=== PATIENT | male | born 1950 | race Caucasian/White ===

== ENCOUNTER 2017-10-08 09:42 | Outpatient (RCR) ==
[2016-01-28 11:04] VITALS: BMI 38.0
[2017-10-08 09:51] VITALS: TEMP 97.8
[2017-10-10 10:31] VITALS: BP 136/62
== END 2017-10-16 ==
LOC: CAR.REHAB 09:42
PROVIDERS: ATTEND Internal Medicine
DX: I25.810 Atherosclerosis of coronary artery bypass graft(s) without angina pectoris (principal)
CPT/HCPCS: 93797

== ENCOUNTER 2017-10-17 07:44 | Outpatient (RCR) ==
[2016-01-28 11:04] VITALS: BMI 38.0
[2017-11-12 10:59] VITALS: BP 140/56
== END 2017-11-13 ==
LOC: CAR.REHAB 07:44
PROVIDERS: ATTEND Internal Medicine
DX: I25.810 Atherosclerosis of coronary artery bypass graft(s) without angina pectoris (principal)
CPT/HCPCS: 93797

== ENCOUNTER 2017-11-14 06:44 | Outpatient (RCR) ==
[2016-01-28 11:04] VITALS: BMI 38.0
[2017-12-12 10:54] VITALS: BP 138/58
== END 2017-12-14 ==
LOC: CAR.REHAB 06:44
PROVIDERS: ATTEND Internal Medicine
DX: I25.810 Atherosclerosis of coronary artery bypass graft(s) without angina pectoris (principal)
CPT/HCPCS: 93797

== ENCOUNTER 2017-12-16 09:02 | Outpatient (RCR) ==
[2016-01-28 11:04] VITALS: BMI 38.0
[2017-12-17 10:59] VITALS: BP 148/58
== END 2017-12-20 10:33 | disposition home or self-care (01) ==
LOC: CAR.REHAB 09:02
PROVIDERS: ATTEND Internal Medicine
DX: I25.10 Atherosclerotic heart disease of native coronary artery without angina pectoris (principal)
CPT/HCPCS: 93797

== ENCOUNTER 2018-01-10 10:00 | Outpatient (RCR) ==
[2016-01-28 11:04] VITALS: BMI 38.0
--- NOTE | 2018-01-08 14:56 | RS.OPPTEV2 ---
Date of Note: 01/08/18 Visit #: 1 Date of Evaluation: 01/08/18 Payer Source: MEDICARE Surgery Performed?: Yes (Right TKA) Treatment Diagnosis: Right knee joint limitation, pain, s/p right TKA History of Condition/Mechanism of Injury:: Patient states progressive right knee pain from arthritis led him to have a knee replacement. He had the left TKA in April 2015. Prior Level of Function.....Patient was independent with: ADL's, Self Care, Caregiving, Ambulation/Mobility, Community Integration/Access Functional Limitations: Sleep, Self Care, ADL's, Reaching, Pushing, Pulling, Lifting, Carrying, Sitting, Standing, Bending, Squatting, Ambulation, Community Access/Integration Current Subjective/complaints:: Patient reports he feels that he is doing better after this knee surgery than when he had the left knee done. States he has not had a lot of pain. States he is using the rolling walker with all ambulation. He says he feels like he could take off walking without it, but he does not want to get away from it to soon. He goes back to the doctor on Saturday01/13/18. Reports having one small step up to his home. He is not able to drive at this time due to proximity of surgery. He is taking a modified shower/ bath by using a stool in the tub. States he needs assistance with ADL's due to limited knee ROM. States he has not taken pain medication for the last few days. States he is icing the knee and trying not to overdue his activity. He is performing exercises as instructed in the hospital. Reports prior to surgery he worked out at [employer] three times a week on the bike, treadmill, and elliptical life skills trainer. States he did not have a CPM at all with this knee surgery. Treatment Side (optional): Right Medical History Medical History: Hypertension, CVA/TIA, Diabetes Medical History Comments:: neuropathy from Diabetes Surgical History Comments:: Left TKA 2014 Smoking Status: Never smoker Hx Home Medications: aspirin, atorvastatin,celexa,plavix, lasix,neurontin, norco , keppra, zestril, lopressor Patient's Goals: His goal is to return to his previous level of function. Pain Assessment - Pain Description Pain Location: Right knee Pain Description: Aching Current Pain Intensity: 3/10 Worst Pain Intensity: 8/10 Functional Outcome Measure LE Functional Scale: 21 (21/80=73.75% impairment) - G Codes & Severity Modifier G Codes & Modifier: Mobility current CL. Mobility goal CJ Source of G Code score: LE functional scale Observation - Observation Inspection: Patient presents with light dressing to anterior aspect of the right knee joint. Demonstrates stitches in place and no drainage. Demonstrates moderate bruising throughout the posterior aspect of the right knee and lower leg. Gait - Gait Pattern Gait Comments: Patient ambulates with a rolling walker with decreased stance on the right LE. He demonstrates good heelstrike on the right LE. Right hip and knee flexion is decreased during swing phase. Transfers from chair and treatment table independently. - Left Knee ROM Left Knee Extension: full extension Left Knee Flexion: 125 (degrees AROM) - Right Knee ROM Right Knee Extension: -6 degrees from full extension Right Knee Flexion: 104 (degrees AROM) Knee ROM Limitations: Soft Tissue Tightness, Pain - Left Knee Strength Left Knee Extension: 5 Normal Left Knee Flexion: 5 Normal Comments: Left hip strength 4+ to 5/5. - Right Knee Strength Right Knee Extension: 4 Good Right Knee Flexion: 4 Good Comments: Right hip strength 4+/5 throughout. Palpation Comments:: Patient with expected amount of tenderness and swelling throughout the right knee joint and lower leg. Sensation - Sensation Comments: Reports tingling in bilateral feet from neuropathy. - Heat/Cryotherapy Treatment: Cryotherapy (X 12 mins following evaluation and exercises) Interventions - Exercise/Activities/Manual Therapy Exercises/Activities: Patient assisted with flexion/extension of the right knee. Performed SAQ's, SLR's, ankle pumps, and received stretching to the right heelcord. Patient encouraged to continue performing these exercises at home and also advised to elevate and ice the knee often to help decrease swelling. Manual Therapy: NA HOME EXERCISE PROGRAM: AP's, SLR's, SAQ's, heel slides, standing HS curls. - Charges Timed Code Treatment Minutes: 18 mins Total Treatment Time: 50 mins Procedures billed for this date of service:: EVAL Low, CP, EX EVALUATION COMPLEXITY LEVEL EVALUATION COMPLEXITY LEVEL: HISTORY: Medium (Diabetes, CVA, CABG), EXAM OF BODY SYSTEMS: Low (limited walking, standing,driving, ADL's), CLINICAL PRESENTATION: Low, CLINICAL DECISION MAKING: Low Assessment Assessment: Patient presents to therapy one week s/p right TKA. He demonstrates limited right knee ROM and strength. He scores 73.75% impairment on the LE functional scale. He is unable to independently perform all selfcare, ADL's, and his regular activities. He presents good potential to regain functional AROM and strenght to return to his previous level of function. Patient Education: Education of diagnosis, Body/Joint mechanics, Home Exercise Program, Home Safety, Activity Modification, Education of Plan of Care Rehab Potential: Good Short Term Goals Goal #1: Left knee to actively demonstrate full extension. Goal to be met by: 01/22/18 Goal #2: Left knee flexion to 120 degrees. Goal to be met by: 01/22/18 Goal #3: Left quad strength 4+/5. Goal to be met by: 01/22/18 Goal #4: Patient to ambulate with cane in department with good safety. Goal to be met by: 01/22/18 Halfway Goals Goal #1: Pt knows HEP and to continue ex's to maintain functional level at D/C. Goal to be met by: 02/22/18 Goal #2: Score on LE functional scale improved to 39% or less impairment. Goal to be met by: 02/22/18 Goal #3: Pt to amb. without assistive device, community distances with min. gt dev. Goal to be met by: 02/22/18 Goal #4: Left knee AROM WFL's to perform all functional activities/ADL's. Goal to be met by: 02/22/18 Plan - Treatment to be Provided Procedures: Therapeutic Exercises, Therapeutic Activity, Gait Training, Neuromuscular Rehab, Manual Therapy, Patient Education Modalities: Electrical Stimulation, Cryotherapy - Treatment Plan Frequency: 3 X week Duration: 6 weeks ORDER # VISITS AND/OR THROUGH DATE: 02/22/18 - Treatment Code (1) Knee pain Code(s): M25.569 - PAIN IN UNSPECIFIED KNEE Qualifiers: Chronicity: acute Laterality: right Qualified Code(s): M25.561 - Pain in right knee (2) Knee stiffness Qualifiers: Laterality: right Qualified Code(s): M25.661 - Stiffness of right knee, not elsewhere classified (3) Aftercare following joint replacement surgery Code(s): Z47.1 - AFTERCARE FOLLOWING JOINT REPLACEMENT SURGERY Qualifiers: Joint replacement surgery site: knee Laterality: right Qualified Code(s) : Z47.1 - Aftercare following joint replacement surgery; Z96.651 - Presence of right artificial knee joint
--- NOTE | 2018-01-10 12:04 | RS.OPPTDN ---
Subjective Date of Note: 01/10/18 Visit #: 2 Date of Evaluation: 01/08/18 Payer Source: MEDICARE Treatment Diagnosis: Right knee joint limitation, pain, s/p right TKA Current Subjective/complaints:: Patient states he "overdid it" yesterday. He reports going out to lunch with his family and had his leg in bent position for too long resulting in increased swelling and pain. Reports he has been performing HEP, but did forget to ice. Reports he does not take pain medication often, but did prior to coming this morning and did also last night. - Treatment Modality: Electrical Stim Unattended Parameters/Method Applied: hivolt 4 large pads cross current @ 300-345 pk volts x 18 mins after therex Patient Position: Supine - Heat/Cryotherapy Treatment: Cryotherapy (anterior/post R knee) Interventions - Exercise/Activities/Manual Therapy Exercises/Activities: Patient assisted with flexion/extension of the right knee , heel cord stretches. Performed SAQ's, SLR's, pillow squeezes, ankle pumps, hip abd/add, QS multiple reps. Patient receives education of diagnosis, HEP, and edema control. Patient sits to perform LAQ also. Total minutes of Exercise: 25 Manual Therapy: NA HOME EXERCISE PROGRAM: AP's, SLR's, SAQ's, heel slides, standing HS curls. - Charges Timed Code Treatment Minutes: 25 Total Treatment Time: 43 Procedures billed for this date of service:: cp, estim (un), ex Assessment: Patient experiencing increased swelling and pain since he had prolonged sitting yesterday with company. He is able to glo all therex today, performing active SLR and demo reduced swelling with ex's and modalities. Patient Education: Education of diagnosis, Body/Joint mechanics, Home Exercise Program, Education of Plan of Care Patient demonstrates compliance with HEP?: Yes Short Term Goals Goal #1: Left knee to actively demonstrate full extension. Goal to be met by: 01/22/18 Progress towards Goal:: Progressing Goal #2: Left knee flexion to 120 degrees. Goal to be met by: 01/22/18 Progress towards Goal:: Progressing Goal #3: Left quad strength 4+/5. Goal to be met by: 01/22/18 Goal #4: Patient to ambulate with cane in department with good safety. Goal to be met by: 01/22/18 Vending Machine Attendant Goals Goal #1: Pt knows HEP and to continue ex's to maintain functional level at D/C. Goal to be met by: 02/22/18 Goal #2: Score on LE functional scale improved to 39% or less impairment. Goal to be met by: 02/22/18 Goal #3: Pt to amb. without assistive device, community distances with min. gt dev. Goal to be met by: 02/22/18 Goal #4: Left knee AROM WFL's to perform all functional activities/ADL's. Goal to be met by: 02/22/18 Plan PLAN OF CARE EXPIRES ON:: 02/22/18 ORDER # VISITS AND/OR THROUGH DATE: 02/22/18 PLAN: Patient to continue TIW advancing exercises as glo. Patient to follow up January 13.
--- NOTE | 2018-01-14 10:49 | RS.OPPTDN ---
Subjective Date of Note: 01/14/18 Visit #: 3 Date of Evaluation: 01/08/18 Payer Source: MEDICARE Treatment Diagnosis: Right knee joint limitation, pain, s/p right TKA Current Subjective/complaints:: Patient reports tightness ,more than actual knee pain .He is compliant to HEP.He is now ambulating with straight cane .He had follow up appt. with Dr. Hamm yesterday,with good report. Pain Assessment - Pain Description Pain Location: R knee Pain Description: Dull Current Pain Intensity: 2-3 - Treatment Modality: Electrical Stim Unattended Parameters/Method Applied: 20 mins. high volt to R knee,channel 1 to quads @ 320 pv,channel 2 to anterior tib. @ 400 pv. Patient Position: Supine - Heat/Cryotherapy Treatment: Cryotherapy (concurrent with e-stim) Interventions - Exercise/Activities/Manual Therapy Exercises/Activities: 30 mins. total of TKA protocol in supine ,multiple reps of each.Pasive knee extension on bolster x 20 secs./5 reps.Gentle R hamstring stretches .Knee extension -10 at rest ,-7 with quad set.Knee flexion to 112 today without assist. Total minutes of Exercise: 30 Manual Therapy: NA Total minutes of Manual Therapy: 0 HOME EXERCISE PROGRAM: AP's, SLR's, SAQ's, heel slides, standing HS curls. - Charges Timed Code Treatment Minutes: 50 Total Treatment Time: 50 Procedures billed for this date of service:: cp,ex 2,e-stim Assessment: Progressing well.He is now 2 weeks post-op,has softer end feel present for knee flexion ,moderate edema and warmth present.He has good knowledge of HEP ,as he has had the L knee replaced in 2014.He also has good understanding of safety and joint protection. Patient Education: Education of diagnosis, Body/Joint mechanics, Home Exercise Program, Home Safety, Activity Modification, Education of Plan of Care Patient demonstrates compliance with HEP?: Yes Short Term Goals Goal #1: Right knee to actively demonstrate full extension. Goal to be met by: 01/22/18 Progress towards Goal:: Progressing Goal #2: Right knee flexion to 120 degrees. Goal to be met by: 01/22/18 Progress towards Goal:: Progressing Goal #3: Right quad strength 4+/5. Goal to be met by: 01/22/18 Progress towards Goal:: Progressing Goal #4: Patient to ambulate with cane in department with good safety. Goal to be met by: 01/22/18 Progress towards Goal:: Progressing Custodial Goals Goal #1: Pt knows HEP and to continue ex's to maintain functional level at D/C. Goal to be met by: 02/22/18 Progress towards goal: Progressing Goal #2: Score on LE functional scale improved to 39% or less impairment. Goal to be met by: 02/22/18 Goal #3: Pt to amb. without assistive device, community distances with min. gt dev. Goal to be met by: 02/22/18 Goal #4: Right knee AROM WFL's to perform all functional activities/ADL's. Goal to be met by: 02/22/18 Plan PLAN OF CARE EXPIRES ON:: 02/22/18 ORDER # VISITS AND/OR THROUGH DATE: 02/22/18 PLAN: Continue PT to eliminate edema and improve strength in the R knee.
== END 2018-01-13 23:59 ==
PROVIDERS: ATTEND Orthopaedic Surgery
DX: Z47.1 Aftercare following joint replacement surgery (principal); M17.11 Unilateral primary osteoarthritis, right knee; M25.561 Pain in right knee; M25.661 Stiffness of right knee, not elsewhere classified

== ENCOUNTER 2018-02-12 10:00 | Outpatient (RCR) ==
[2016-01-28 11:04] VITALS: BMI 38.0
--- NOTE | 2018-01-16 11:45 | RS.OPPTDN ---
Subjective Date of Note: 01/16/18 Visit #: 4 Date of Evaluation: 01/08/18 Payer Source: MEDICARE Treatment Diagnosis: Right knee joint limitation, pain, s/p right TKA Current Subjective/complaints:: Patient says he has increased swelling from sitting with a friend yesterday which also impacted his sleep. Reports he does try to get up many times throughout the day to walk around and can tell he is gaining strength and motion. Reports he rarely takes pain medication either. He adds, he is able to now walk in his home without any AD, but does use SC in the community. Reports he is also able to tell that he is able to walk faster, returning to his normal pace. Pain Assessment - Pain Description Pain Location: "sore and swollen". Tender at the posterior knee and into the upper calf - Treatment Modality: Electrical Stim Unattended Parameters/Method Applied: hivolt 4 large pads cross current @ 425 pk volts x 20 mins over the R knee Patient Position: Supine - Heat/Cryotherapy Treatment: Cryotherapy Interventions - Exercise/Activities/Manual Therapy Exercises/Activities: Mr. Barahona receives patellar glides for the R knee, assisted with flexion/extension of the right knee, heel cord stretches. Performed SAQ's, SLR's, ball squeezes, ankle pumps,hip abd/add, QS multiple reps. Further hamstring stretching and calf as well as heel slides. LAQ x 15. Continued with education of diagnosis, HEP, and edema control. Patient sits to perform LAQ also. Total minutes of Exercise: 33 Manual Therapy: NA HOME EXERCISE PROGRAM: AP's, SLR's, SAQ's, heel slides, standing HS curls. - Charges Timed Code Treatment Minutes: 33 Total Treatment Time: 53 Procedures billed for this date of service:: cp, estim (un), ex2 Assessment: Patient progressing quite well with ROM and pain level. He continues to demo moderate bruising and swelling with pitting edema to the R knee and lower leg. He is very compliant with HEP and is now progressed to using SC for community and independent amb at home. Patient Education: Home Exercise Program, Home Safety, Activity Modification, Education of Plan of Care Patient demonstrates compliance with HEP?: Yes Short Term Goals Goal #1: Left knee to actively demonstrate full extension. Goal to be met by: 01/22/18 Progress towards Goal:: Progressing Goal #2: Left knee flexion to 120 degrees. Goal to be met by: 01/22/18 Progress towards Goal:: Progressing Goal #3: Left quad strength 4+/5. Goal to be met by: 01/22/18 Progress towards Goal:: Progressing Goal #4: Patient to ambulate with cane in department with good safety. Goal to be met by: 01/22/18 Progress towards Goal:: Met Vending Machine Refiller Goals Goal #1: Pt knows HEP and to continue ex's to maintain functional level at D/C. Goal to be met by: 02/22/18 Goal #2: Score on LE functional scale improved to 39% or less impairment. Goal to be met by: 02/22/18 Goal #3: Pt to amb. without assistive device, community distances with min. gt dev. Goal to be met by: 02/22/18 Goal #4: Left knee AROM WFL's to perform all functional activities/ADL's. Goal to be met by: 02/22/18 Plan PLAN OF CARE EXPIRES ON:: 02/22/18 ORDER # VISITS AND/OR THROUGH DATE: 02/22/18 PLAN: Patient to continue progressing therex to the R knee. Complete measurements tomorrow.
--- NOTE | 2018-01-17 11:43 | RS.OPPTDN ---
Subjective Date of Note: 01/17/18 Visit #: 5 Date of Evaluation: 01/08/18 Payer Source: MEDICARE Treatment Diagnosis: Right knee joint limitation, pain, s/p right TKA Current Subjective/complaints:: Patient says his knee is improving with motion and tightness is slightly less today. He says he has been performing HEP and using ice often at home. - Treatment Modality: Electrical Stim Unattended Parameters/Method Applied: 4 large pads crossed @ 435-450 pk volts x 20 mins to R knee after therex Patient Position: Supine - Heat/Cryotherapy Treatment: Cryotherapy (posterior/anterior knee) Interventions - Exercise/Activities/Manual Therapy Exercises/Activities: Mr. Barahona receives patellar glides for the R knee, assisted with flexion/extension of the right knee, heel cord and hamstring stretches. Performed SAQ's applying 2#, SLR's, ball squeezes, ankle pumps,DF with green tband, hip abd/add, QS multiple reps. Further hamstring stretching and calf as well as heel slides. LAQ x 15. Standing at railing: hip abd, ham curls, heel raises, hip flexion (L) x 12 reps. Total minutes of Exercise: 38 Manual Therapy: NA HOME EXERCISE PROGRAM: AP's, SLR's, SAQ's, heel slides, standing HS curls. - Objective Findings Observations,measurements,etc.: Active knee flexion: 116 degrees supine. Active knee extension: -4 degrees in supine - Charges Timed Code Treatment Minutes: 38 Total Treatment Time: 58 Procedures billed for this date of service:: cp, estim (un), ex3 Assessment: Patient demo increased knee flexion compared to last week. He demo good patellar motion and decreased palpable tightness to the posterior knee and at the hamstring tendons. He presents amb independently today with only slight decrease in WBing to the R LE. Improved mobility and swelling today. Patient Education: Body/Joint mechanics, Home Exercise Program, Education of Plan of Care Patient demonstrates compliance with HEP?: Yes Short Term Goals Goal #1: Left knee to actively demonstrate full extension. Goal to be met by: 01/22/18 Progress towards Goal:: Progressing Goal #2: Left knee flexion to 120 degrees. Goal to be met by: 01/22/18 Progress towards Goal:: Progressing Comments:: 116 today Goal #3: Left quad strength 4+/5. Goal to be met by: 01/22/18 Progress towards Goal:: Progressing Goal #4: Patient to ambulate with cane in department with good safety. Goal to be met by: 01/22/18 Progress towards Goal:: Met Comments:: presents today with no AD [facility] Goals Goal #1: Pt knows HEP and to continue ex's to maintain functional level at D/C. Goal to be met by: 02/22/18 Goal #2: Score on LE functional scale improved to 39% or less impairment. Goal to be met by: 02/22/18 Goal #3: Pt to amb. without assistive device, community distances with min. gt dev. Goal to be met by: 02/22/18 Goal #4: Left knee AROM WFL's to perform all functional activities/ADL's. Goal to be met by: 02/22/18 Plan PLAN OF CARE EXPIRES ON:: 02/22/18 ORDER # VISITS AND/OR THROUGH DATE: 02/22/18 PLAN: Patient to continue TIW for progressive therex for mobility and strength.
--- NOTE | 2018-01-22 14:03 | RS.OPPTDN ---
Subjective Date of Note: 01/22/18 Visit #: 7 Date of Evaluation: 01/08/18 Payer Source: MEDICARE Treatment Diagnosis: Right knee joint limitation, pain, s/p right TKA Current Subjective/complaints:: Patient says he is walking around without an AD without difficulty in home/community, but still battling swelling and tightness. He says sitting for short periods of time continues to cause swelling. He is [place]. He reports pain is very mild at this point, not taking any pain meds prior to appt today. Pain Assessment - Pain Description Pain Location: tightness to the posterior R knee and calf - Treatment Modality: Electrical Stim Unattended Parameters/Method Applied: hivolt 4 large pads crossed over the R knee after therex @ 445-470pk volts x 20 mins Patient Position: Supine - Heat/Cryotherapy Treatment: Cryotherapy (anterior/posterior knee) Interventions - Exercise/Activities/Manual Therapy Exercises/Activities: 32 mins. Patient began on stationary bike full revolutions for/retro x 7 mins adjusting and repositioning his R foot often in pedal. He receives patellar mobs, stretching for HS, knee flexion/ext, and heel cords. SAQ 2#, green tband for DF, hip abd in hooklying, SLR, hip abd with SLR, ball squeeze for hip add, 2x10. Stretching for knee extension over bolster. Continued stretching for extension with drainage massage, heel slides with overpressures for flexion. LAQ 2#, x 20. Standing: hip abd, ham curls, heel raises, hip flexion x 10. Ended with modalties. Manual Therapy: NA HOME EXERCISE PROGRAM: AP's, SLR's, SAQ's, heel slides, standing HS curls. - Charges Timed Code Treatment Minutes: 32 Total Treatment Time: 52 Procedures billed for this date of service:: ex2, estim (un), cp, Assessment: Patient demo improved swelling to the R LE/calf now without pitting edema. Decreased tightness to the posterior knee and calf and pain remaining low enough to not warrant him to take pain medication routinely. He is amb with more equal WB on the R LE and independently in the community now. Patient Education: Body/Joint mechanics, Home Exercise Program, Education of Plan of Care Patient demonstrates compliance with HEP?: Yes Short Term Goals Goal #1: Left knee to actively demonstrate full extension. Goal to be met by: 01/22/18 Progress towards Goal:: Progressing Goal #2: Left knee flexion to 120 degrees. Goal to be met by: 01/22/18 Progress towards Goal:: Progressing Goal #3: Left quad strength 4+/5. Goal to be met by: 01/22/18 Progress towards Goal:: Progressing Goal #4: Patient to ambulate with cane in department with good safety. Goal to be met by: 01/22/18 Progress towards Goal:: Met Comments:: Now amb independently Perforator Operator Goals Goal #1: Pt knows HEP and to continue ex's to maintain functional level at D/C. Goal to be met by: 02/22/18 Progress towards goal: Progressing Goal #2: Score on LE functional scale improved to 39% or less impairment. Goal to be met by: 02/22/18 Comments: reassess next week Goal #3: Pt to amb. without assistive device, community distances with min. gt dev. Goal to be met by: 02/22/18 Progress towards goal: Partially Met Goal #4: Left knee AROM WFL's to perform all functional activities/ADL's. Goal to be met by: 02/22/18 Progress towards goal: Progressing Plan PLAN OF CARE EXPIRES ON:: 02/22/18 ORDER # VISITS AND/OR THROUGH DATE: 02/22/18 PLAN: Patient to continue for progressive therex to normalize ROM and strength according to STG/LTG established.
--- NOTE | 2018-01-24 11:45 | RS.OPPTDN ---
Subjective Date of Note: 01/24/18 Visit #: 8 Date of Evaluation: 01/08/18 Payer Source: MEDICARE Treatment Diagnosis: Right knee joint limitation, pain, s/p right TKA Current Subjective/complaints:: Patient says he has walked on uneven terrain and grass without any difficulty. He reports very little pain and continuous improvement with swelling. He says his knee feels "fairly normal now." Pain Assessment - Pain Description Pain Location: tightness and sore to the posterior knee - Treatment Modality: Electrical Stim Unattended Parameters/Method Applied: 4 large pads HIVOLT crossed over the R knee @ 480 pk volts x 20 mins after therex Patient Position: Supine - Heat/Cryotherapy Treatment: Cryotherapy Interventions - Exercise/Activities/Manual Therapy Exercises/Activities: 38 mins. Patient began on stationary bike full revolutions for/retro x 7 mins adjusting and repositioning his R foot often in pedal and adjusting seat to have more flexed position to the R knee. He receives patellar mobs, stretching for HS, knee flexion/ext, and heel cords. SAQ 2 1/2#, green tband for DF, hip abd in hooklying, SLR, hip abd with SLR, ball squeeze for hip add, 2x10. Stretching for knee extension over bolster. Continued stretching for extension with drainage massage, heel slides with overpressures for flexion and finished with further stretching for ext over bolster and hamstring stretching. LAQ 2#, x 20. Standing: minisquats x 10 ( with chair behind him), hip abd, ham curls, heel raises, hip flexion/ext x 10. Ended with modalties. Measurements taken. Manual Therapy: NA HOME EXERCISE PROGRAM: AP's, SLR's, SAQ's, heel slides, standing HS curls. - Objective Findings Observations,measurements,etc.: -2 to 120 degrees actively, 122 passive. Girth at knee joint 48cm L, 50 cm for R. - Charges Timed Code Treatment Minutes: 38 Total Treatment Time: 38 Procedures billed for this date of service:: ex3, estim (un), cp Assessment: Patient progressing quite well with gait demo near normal pattern showing increased WB to the R LE. Pain level is staying low for this being the 3rd week s/p. Swelling is reduced, thus ROM increasing as well. Patient Education: Body/Joint mechanics, Home Safety Patient demonstrates compliance with HEP?: Yes Short Term Goals Goal #1: Left knee to actively demonstrate full extension. Goal to be met by: 01/22/18 Progress towards Goal:: Progressing Goal #2: Left knee flexion to 120 degrees. Goal to be met by: 01/22/18 Progress towards Goal:: Met (Patient amb independently) Goal #3: Left quad strength 4+/5. Goal to be met by: 01/22/18 Progress towards Goal:: Progressing Goal #4: Patient to ambulate with cane in department with good safety. Goal to be met by: 01/22/18 Progress towards Goal:: Met Stucco Plasterer Goals Goal #1: Pt knows HEP and to continue ex's to maintain functional level at D/C. Goal to be met by: 02/22/18 Progress towards goal: Progressing Goal #2: Score on LE functional scale improved to 39% or less impairment. Goal to be met by: 02/22/18 Comments: REassess next week Goal #3: Pt to amb. without assistive device, community distances with min. gt dev. Goal to be met by: 02/22/18 Progress towards goal: Partially Met Goal #4: Left knee AROM WFL's to perform all functional activities/ADL's. Goal to be met by: 02/22/18 Progress towards goal: Progressing Plan PLAN OF CARE EXPIRES ON:: 02/22/18 ORDER # VISITS AND/OR THROUGH DATE: 02/22/18 PLAN: Patient to continue to progress therex reducing swelling, pain, and improving ROM and gait.
--- NOTE | 2018-01-27 11:35 | RS.OPPTDN ---
Subjective Date of Note: 01/27/18 Visit #: 9 Date of Evaluation: 01/08/18 Payer Source: MEDICARE Treatment Diagnosis: Right knee joint limitation, pain, s/p right TKA Current Subjective/complaints:: Patient reports he is walking fine without his cane. He says he feels his knee is stronger now than it was before his surgery. Reports no pain and states he is noticing continued decrease in tightness to the posterior knee and calf. Pain Assessment - Pain Description Pain Location: stiff - Heat/Cryotherapy Treatment: Cryotherapy (20 mins ant/post R knee after therex) Interventions - Exercise/Activities/Manual Therapy Exercises/Activities: 38 mins. Patient began on stationary bike full revolutions for/retro x 7 mins adjusting and repositioning his R foot often in pedal and adjusting seat to have more flexed position to the R knee. He receives patellar mobs, stretching for HS, knee flexion/ext, and heel cords. SAQ 2 1/2#, green tband for DF, hip abd in hooklying, SLR, hip abd with SLR, ball squeeze for hip add, 2x10. Stretching for knee extension over bolster. Continued stretching for extension with drainage massage, heel slides with overpressures for flexion and finished with further stretching for ext over bolster and hamstring stretching. LAQ, hip flexion, 3#, ham curls with green tband, x 20. Standing: minisquats x 10 (with chair behind him), hip abd, ham curls, hip flexion x 10. Ended with cryotherapy. Measurements taken. Manual Therapy: NA HOME EXERCISE PROGRAM: AP's, SLR's, SAQ's, heel slides, standing HS curls. - Charges Timed Code Treatment Minutes: 38 Total Treatment Time: 58 Procedures billed for this date of service:: cp, ex3 Assessment: Patient is progressing well with all therex advancing weight, standing and steady squats, and improved swelling allowing for near comparison ROM to the L LE. Patient steady with independent amb. Patient Education: Home Exercise Program Patient demonstrates compliance with HEP?: Yes Short Term Goals Goal #1: Left knee to actively demonstrate full extension. Goal to be met by: 01/22/18 Progress towards Goal:: Progressing Goal #2: Left knee flexion to 120 degrees. Goal to be met by: 01/22/18 Progress towards Goal:: Met (Patient amb independently) Goal #3: Left quad strength 4+/5. Goal to be met by: 01/22/18 Progress towards Goal:: Progressing Goal #4: Patient to ambulate with cane in department with good safety. Goal to be met by: 01/22/18 Progress towards Goal:: Met Snf Goals Goal #1: Pt knows HEP and to continue ex's to maintain functional level at D/C. Goal to be met by: 02/22/18 Progress towards goal: Progressing Goal #2: Score on LE functional scale improved to 39% or less impairment. Goal to be met by: 02/22/18 Progress towards goal: Progressing Comments: reassess this week Goal #3: Pt to amb. without assistive device, community distances with min. gt dev. Goal to be met by: 02/22/18 Progress towards goal: Partially Met Goal #4: Left knee AROM WFL's to perform all functional activities/ADL's. Goal to be met by: 02/22/18 Progress towards goal: Progressing Plan PLAN OF CARE EXPIRES ON:: 02/22/18 ORDER # VISITS AND/OR THROUGH DATE: 02/22/18 PLAN: Patient to be reassessed next session. He should continue with progressive exercises.
--- NOTE | 2018-01-29 11:20 | RS.OPPTDN ---
Subjective Date of Note: 01/29/18 Visit #: 10 Date of Evaluation: 01/08/18 Payer Source: MEDICARE Treatment Diagnosis: Right knee joint limitation, pain, s/p right TKA Current Subjective/complaints:: Patient says he had cramping to his R calf earlier this week that kept him awake nearly all night, but since has eased drastically. Reports when this happens he just gets up and walks around. He says he has no difficulty now getting in/out of his truck, shower, or up/down his step. Pain Assessment - Pain Description Pain Location: decreased tightness and swelling to the R LE Interventions - Exercise/Activities/Manual Therapy Exercises/Activities: 38 mins. Patient continues with stationary bike full revolutions for/retro x 7 mins adjusting and repositioning his R foot often in pedal and adjusting seat to have more flexed position to the R knee. He receives patellar mobs, stretching for HS, knee flexion/ext, and heel cords. SAQ increased to 3#, progressed to blue tband for DF, hip abd in hooklying and ham curls with green tband, SLR 1#, hip abd with SLR, ball squeeze for hip add, 2x10. Stretching for knee extension over bolster. Continued stretching for extension with drainage massage, heel slides with overpressures for flexion. Continued more hamstring stretching. LAQ 3#, hip flexion, 3#, ham curls with green tband, x 20. Knee flexion at EOB with self stretching. Began leg press @ 30# 2x15 reps, then 45# bilateral extension 3x15. Began treadmill @ 1.7 mph x 4 mins, 1.9mph x 2 mins. Patient expressed no need to have cryotherapy due to feeling great when leaving. Manual Therapy: NA HOME EXERCISE PROGRAM: AP's, SLR's, SAQ's, heel slides, standing HS curls. - Objective Findings Observations,measurements,etc.: LE Functional Scale (based on presentation/self reports): 48/80 or 40% impaired (EVAL: 21/80 or 73.75%) - Charges Timed Code Treatment Minutes: 38 Total Treatment Time: 38 Procedures billed for this date of service:: ex3 Assessment: Patient admits and presents with significant progress in the past 1- 2 weeks indicating improved LE Functional Scale score from /80 to now 48/80 or 40% impaired placing him only 1 point away from goal category. He has demo 122 degrees flexion actively and -2 degrees extension. He has progressed to amb on treadmill to pre-surgical pace speed of 1.9 mph without difficulty. Today has been the first day he has not needed or requested no modalities due to his progress. Patient Education: Body/Joint mechanics, Home Exercise Program, Education of Plan of Care Patient demonstrates compliance with HEP?: Yes (Pt joining [employer] and using pool) Short Term Goals Goal #1: Left knee to actively demonstrate full extension. Goal to be met by: 01/22/18 Progress towards Goal:: Progressing Goal #2: Left knee flexion to 120 degrees. Goal to be met by: 01/22/18 Progress towards Goal:: Met (122 degrees today) Goal #3: Left quad strength 4+/5. Goal to be met by: 01/22/18 Progress towards Goal:: Met Goal #4: Patient to ambulate with cane in department with good safety. Goal to be met by: 01/22/18 Progress towards Goal:: Met (patient amb independently in dept at this point) Residential Goals Goal #1: Pt knows HEP and to continue ex's to maintain functional level at D/C. Goal to be met by: 02/22/18 Progress towards goal: Progressing Goal #2: Score on LE functional scale improved to 39% or less impairment. Goal to be met by: 02/22/18 Progress towards goal: Progressing Comments: Scale reveals 40% today Goal #3: Pt to amb. without assistive device, community distances with min. gt dev. Goal to be met by: 02/22/18 Progress towards goal: Met Goal #4: Left knee AROM WFL's to perform all functional activities/ADL's. Goal to be met by: 02/22/18 Progress towards goal: Progressing Plan PLAN OF CARE EXPIRES ON:: 02/22/18 ORDER # VISITS AND/OR THROUGH DATE: 02/22/18 PLAN: Patient to continue x 1-2 more weeks weaning down to BIW next week
--- NOTE | 2018-01-31 15:04 | RS.OPPTDN ---
Subjective Date of Note: 01/31/18 Visit #: 11 Date of Evaluation: 01/08/18 Payer Source: MEDICARE Treatment Diagnosis: Right knee joint limitation, pain, s/p right TKA Current Subjective/complaints:: Patient says he feels good. Reports he had no increase in pain without having cryotherapy after his last session and progressing to multigym/treadmill. Interventions - Exercise/Activities/Manual Therapy Exercises/Activities: 50 mins. Patient continues with stationary bike full revolutions for/retro x 7 mins adjusting and repositioning his R foot often in pedal and adjusting seat to have more flexed position to the R knee. He receives patellar mobs, stretching for HS, knee flexion/ext, and heel cords. SAQ 3#, blue tband for DF, hip abd in hooklying and ham curls with blue tband, SLR 1 1/2#, hip abd with SLR, ball squeeze for hip add, 2x10. Stretching for knee extension over bolster. Continued stretching for extension with drainage massage, heel slides with overpressures for flexion. Continued more hamstring stretching. LAQ 3#, hip flexion, 3#, ham curls with green tband,hip flexion 3 # x 20. Knee flexion at EOB with self stretching. Continued with leg press @ 45# 2x15 reps, then 60# bilateral extension 3x15. Progressed treadmill @ 1.7 mph x 2mins, 1.9mph x 6 mins. Patient chose not to have cryotherapy due to lack of pain to justify it. Manual Therapy: NA HOME EXERCISE PROGRAM: AP's, SLR's, SAQ's, heel slides, standing HS curls. - Charges Timed Code Treatment Minutes: 50 Total Treatment Time: 50 Procedures billed for this date of service:: ex3 Assessment: Patient demo -2 to 126 degrees today to the R knee actively, 126 degrees for the L as well. Patient Education: Body/Joint mechanics, Home Exercise Program, Education of Plan of Care Patient demonstrates compliance with HEP?: Yes Short Term Goals Goal #1: Left knee to actively demonstrate full extension. Goal to be met by: 01/22/18 Progress towards Goal:: Progressing Goal #2: Left knee flexion to 120 degrees. Goal to be met by: 01/22/18 Progress towards Goal:: Met (122 degrees today) Goal #3: Left quad strength 4+/5. Goal to be met by: 01/22/18 Progress towards Goal:: Met Goal #4: Patient to ambulate with cane in department with good safety. Goal to be met by: 01/22/18 Progress towards Goal:: Met (patient amb independently in dept at this point) Operations And Maintenance Specialist Goals Goal #1: Pt knows HEP and to continue ex's to maintain functional level at D/C. Goal to be met by: 02/22/18 Progress towards goal: Progressing Goal #2: Score on LE functional scale improved to 39% or less impairment. Goal to be met by: 02/22/18 Progress towards goal: Progressing Goal #3: Pt to amb. without assistive device, community distances with min. gt dev. Goal to be met by: 02/22/18 Progress towards goal: Met Goal #4: Left knee AROM WFL's to perform all functional activities/ADL's. Goal to be met by: 02/22/18 Progress towards goal: Progressing Plan PLAN OF CARE EXPIRES ON:: 02/22/18 ORDER # VISITS AND/OR THROUGH DATE: 02/22/18 PLAN: Patient to wean to BIW next week and then plan for discharge.
--- NOTE | 2018-02-03 11:12 | RS.OPPTDN ---
Subjective Date of Note: 02/03/18 Visit #: 12 Date of Evaluation: 01/08/18 Payer Source: MEDICARE Treatment Diagnosis: Right knee joint limitation, pain, s/p right TKA Current Subjective/complaints:: Patient says he is now able to go up/down bleachers at [employer] over the weekend. Reports no pain from progressing leg press last week. States he still has some tightness behind his knee. Interventions - Exercise/Activities/Manual Therapy Exercises/Activities: 50 mins. Patient continues with stationary bike full revolutions for/retro x 7 mins adjusting and repositioning his R foot often in pedal and adjusting seat to have more flexed position to the R knee. He receives patellar mobs, stretching for HS, knee flexion/ext, and heel cords. SAQ progressed to 4#, blue tband for DF, hip abd in hooklying and ham curls with blue tband, SLR progressed to 2#, hip abd/add with SLR using blue tband, ball squeeze for hip add, 2x10. Stretching for knee extension over bolster. Heel slides with 4#. Continued more hamstring stretching. LAQ 4#, hip flexion , 4#, ham curls progressed to blue tband x 12. Knee flexion at EOB with self stretching. Continued with leg press @ 45# 2x15 reps, then 60# and 75# bilateral extension 3x15. Progressed treadmill @ 1.7 mph x 2mins, 1.9mph x 6 mins. Total minutes of Exercise: ex3 Manual Therapy: NA HOME EXERCISE PROGRAM: AP's, SLR's, SAQ's, heel slides, standing HS curls. - Charges Timed Code Treatment Minutes: 50 Total Treatment Time: 50 Procedures billed for this date of service:: ex3 Assessment: Patient demo increased swelling today to the knee and lower leg with slight pitting edema near incision and lateral aspect of the R knee joint. Motion remains normalized though for flexion and demo -1 ext today. He is able to progress on leg press and with all mat exercises today. Patient Education: Education of diagnosis, Body/Joint mechanics, Home Exercise Program Patient demonstrates compliance with HEP?: Yes Short Term Goals Goal #1: Left knee to actively demonstrate full extension. Goal to be met by: 01/22/18 Progress towards Goal:: Progressing Goal #2: Left knee flexion to 120 degrees. Goal to be met by: 01/22/18 Progress towards Goal:: Met (122 degrees today) Goal #3: Left quad strength 4+/5. Goal to be met by: 01/22/18 Progress towards Goal:: Met Goal #4: Patient to ambulate with cane in department with good safety. Goal to be met by: 01/22/18 Progress towards Goal:: Met (patient amb independently in dept at this point) Coat Maker Goals Goal #1: Pt knows HEP and to continue ex's to maintain functional level at D/C. Goal to be met by: 02/22/18 Progress towards goal: Progressing Goal #2: Score on LE functional scale improved to 39% or less impairment. Goal to be met by: 02/22/18 Progress towards goal: Progressing Goal #3: Pt to amb. without assistive device, community distances with min. gt dev. Goal to be met by: 02/22/18 Progress towards goal: Met Goal #4: Left knee AROM WFL's to perform all functional activities/ADL's. Goal to be met by: 02/22/18 Progress towards goal: Progressing Plan PLAN OF CARE EXPIRES ON:: 02/22/18 ORDER # VISITS AND/OR THROUGH DATE: 02/22/18 PLAN: Continue to progress extension
--- NOTE | 2018-02-03 14:59 | RS.PTSUM ---
Progress Note/Summary Date of Note: 02/03/18 Date of Evaluation: 01/08/18 Number of Visits: 10 Reporting Period for this Progress Note: 01/08/18 through 01/29/18 Current Complaints/Gains: Patient reports no pain, only complains of tightness. States the tightness is improving. He reports no difficulty now getting in and out of his truck, the shower, or going up his step at home. He plants to return to [employer] next week and use his daughter's pool. Objective Measurements/Presentation: Patient ambulates independently in the community without an assistive device. Right knee AROM -2 degrees extension to 122 degrees flexion. Right hip and knee strength 4+ to 5/5. Progressed to optimal pace on treadmill and advanced to leg press. demonstrates improved LE score, bringing him within one point of reaching LTG. G Codes: Mobility current CK. Mobility goal CJ Source of G Code Score: LE functional scale 48/80=40% impairment. Improvement in areas of getting in/out of bath, donning/doffing shoes and socks, lifting items,walking, stairs, getting in/out of car, sitting, and rolling over in bed. - Short Term Goals Goal #1: Left knee to actively demonstrate full extension. Goal to be met by: 01/22/18 Progress towards Goal:: Progressing Goal #2: Left knee flexion to 120 degrees. Goal to be met by: 01/22/18 Progress towards Goal:: Met (122 degrees today) Goal #3: Left quad strength 4+/5. Goal to be met by: 01/22/18 Progress towards Goal:: Met Goal #4: Patient to ambulate with cane in department with good safety. Goal to be met by: 01/22/18 Progress towards Goal:: Met (patient amb independently in dept at this point) - Jira Administrator Goals Goal #1: Pt knows HEP and to continue ex's to maintain functional level at D/C. Goal to be met by: 02/22/18 Progress towards goal: Progressing Goal #2: Score on LE functional scale improved to 39% or less impairment. Goal to be met by: 02/22/18 Progress towards goal: Progressing Goal #3: Pt to amb. without assistive device, community distances with min. gt dev. Goal to be met by: 02/22/18 Progress towards goal: Met Goal #4: Left knee AROM WFL's to perform all functional activities/ADL's. Goal to be met by: 02/22/18 Progress towards goal: Progressing - Assessment Assessment of Improvement/Progress: Mr. Barahona has made great progress with his functional level with therapy. He demonstrates the potential to benefit from two more visits next week to work on gaining full knee extension and for summarization of HEP and how to progress activities safely. - Plan Plan: Continue Plan of Care Frequency: 2 X week Duration: 1 week PLAN OF CARE EXPIRES ON:: 02/22/18 ORDER # VISITS AND/OR THROUGH DATE: 02/22/18
--- NOTE | 2018-02-06 11:59 | RS.OPPTDN ---
Subjective Date of Note: 02/06/18 Visit #: 13 Date of Evaluation: 01/08/18 Payer Source: MEDICARE Treatment Diagnosis: Right knee joint limitation, pain, s/p right TKA Current Subjective/complaints:: Patient says he may have worked in his yard too much and too long yesterday. He reports ride mowing and other actvities that seemed to cause tightness and fatigue to the R LE. He says once he laid down and elevated his leg, he felt improvement. Patient says the only issue he still has is with squatting down and deep steps. Pain Assessment - Pain Description Pain Description: Tightness Interventions - Exercise/Activities/Manual Therapy Exercises/Activities: 55 mins. Patient continues with stationary bike full revolutions for/retro x 8 mins adjusting and repositioning and adjusting seat to have more flexed position to the R knee. He receives patellar mobs, stretching for HS, knee flexion/ext, and heel cords. SAQ 4#, blue tband for DF , hip abd in hooklying and ham curls with blue tband, SLR 2#, hip abd/add with SLR using blue tband, ball squeeze for hip add, 2x10. Stretching for knee extension over bolster multiple reps. Heel slides with 4#. Continued more hamstring stretching. LAQ 4#, hip flexion, 4#, ham curls progressed to blue tband x 12. Knee flexion at EOB with self stretching. Continued with leg press @ 45# 2x15 reps, then 60# and 75# bilateral extension 3x15. Standing at railin# on R LE: hip abd, ham curls, hip extension, squats, all x 10-15 reps. Deep steps at balance staff trainer using hand rails with proper sequencing x 12. Trreadmill @ 1.9 mph x 5 mins. Manual Therapy: NA HOME EXERCISE PROGRAM: AP's, SLR's, SAQ's, heel slides, standing HS curls. - Charges Timed Code Treatment Minutes: 55 Total Treatment Time: 62 Procedures billed for this date of service:: ex4 Assessment: Patient demo R knee flexion WNL and -1 extension. He is progressing well with all therex and remains with acute tightness/swelling with prolonged yardwork and especially if his knee remains in ext or flexion for very long, however, he admits this work has gotten easier for him to do. Steps were glo well as did squatting. Patient will need to continue these exercises at home and use caution with prolonged sitting/standing to avoid increased swelling. Patient Education: Body/Joint mechanics, Education of Plan of Care Patient demonstrates compliance with HEP?: Yes Short Term Goals Goal #1: Left knee to actively demonstrate full extension. Goal to be met by: 01/22/18 Progress towards Goal:: Progressing Goal #2: Left knee flexion to 120 degrees. Goal to be met by: 01/22/18 Progress towards Goal:: Met (122 degrees today) Goal #3: Left quad strength 4+/5. Goal to be met by: 01/22/18 Progress towards Goal:: Met Goal #4: Patient to ambulate with cane in department with good safety. Goal to be met by: 01/22/18 Progress towards Goal:: Met (patient amb independently in dept at this point) Detention Goals Goal #1: Pt knows HEP and to continue ex's to maintain functional level at D/C. Goal to be met by: 02/22/18 Progress towards goal: Progressing Goal #2: Score on LE functional scale improved to 39% or less impairment. Goal to be met by: 02/22/18 Progress towards goal: Progressing Goal #3: Pt to amb. without assistive device, community distances with min. gt dev. Goal to be met by: 02/22/18 Progress towards goal: Met Goal #4: Left knee AROM WFL's to perform all functional activities/ADL's. Goal to be met by: 02/22/18 Progress towards goal: Progressing Plan PLAN OF CARE EXPIRES ON:: 02/22/18 ORDER # VISITS AND/OR THROUGH DATE: 02/22/18 PLAN: Patient to continue BIW next week then plan to D/c. Patient to reassess LE Functional Scale.
--- NOTE | 2018-02-11 14:12 | RS.OPPTDN ---
Subjective Date of Note: 01/20/18 Visit #: 6 Date of Evaluation: 01/08/18 Payer Source: MEDICARE Treatment Diagnosis: Right knee joint limitation, pain, s/p right TKA Current Subjective/complaints:: Reports having a busy weekend ,and the R knee feels more tight today.No report of sharp pain. Pain Assessment - Pain Description Pain Description: Tightness, Dull, Aching Current Pain Intensity: 3/10 - Treatment Modality: Electrical Stim Unattended Parameters/Method Applied: 20 mins. high volt ,channel 1 to L quads @ 390 pv, channel 2 to anterior tib. @ 440 pv. Patient Position: Supine - Heat/Cryotherapy Treatment: Cryotherapy (concurrent with e-stim) Interventions - Exercise/Activities/Manual Therapy Exercises/Activities: 20 mins. in supine for ankle pumps with green theraband,.SAQ with 3 #,11/28.Quad sets done with R ankle resting on bolster to assist passive extension.5 sets of 5 reps SLR's,ended session with heelslides ,116 to 118 flexion ,-5 extension doing quad set. Total minutes of Exercise: 20 Manual Therapy: NA Total minutes of Manual Therapy: 0 HOME EXERCISE PROGRAM: AP's, SLR's, SAQ's, heel slides, standing HS curls. - Charges Timed Code Treatment Minutes: 40 Total Treatment Time: 40 Procedures billed for this date of service:: ex,cp,e-stim Assessment: Progressing well,has moderate warmth and edema in the R knee today, but soft end feel present with both flexion and extension.He is motivated to improve ,compliant to recommendations of the therapy staff. Patient Education: Home Exercise Program, Education of Plan of Care Patient demonstrates compliance with HEP?: Yes Short Term Goals Goal #1: Left knee to actively demonstrate full extension. Goal to be met by: 01/22/18 Progress towards Goal:: Progressing Goal #2: Left knee flexion to 120 degrees. Goal to be met by: 01/22/18 Progress towards Goal:: Progressing Goal #3: Left quad strength 4+/5. Goal to be met by: 01/22/18 Progress towards Goal:: Progressing Goal #4: Patient to ambulate with cane in department with good safety. Goal to be met by: 01/22/18 Progress towards Goal:: Met [facility] Goals Goal #1: Pt knows HEP and to continue ex's to maintain functional level at D/C. Goal to be met by: 02/22/18 Progress towards goal: Progressing Goal #2: Score on LE functional scale improved to 39% or less impairment. Goal to be met by: 02/22/18 Goal #3: Pt to amb. without assistive device, community distances with min. gt dev. Goal to be met by: 02/22/18 Progress towards goal: Progressing Goal #4: Left knee AROM WFL's to perform all functional activities/ADL's. Goal to be met by: 02/22/18 Progress towards goal: Progressing Plan PLAN OF CARE EXPIRES ON:: 02/22/18 ORDER # VISITS AND/OR THROUGH DATE: 02/22/18 PLAN: Continue PT to increase knee ROM ,decrease edema,increase strength.
--- NOTE | 2018-02-12 11:30 | RS.OPPTDN ---
Subjective Date of Note: 01/20/18 Visit #: 14 Date of Evaluation: 01/08/18 Payer Source: MEDICARE Treatment Diagnosis: Right knee joint limitation, pain, s/p right TKA Current Subjective/complaints:: Patient reports no pain and continued improved strength to the R LE allowing him to walk longer distances and to ascend stairs easier. He says he anticipates seeing his PCP tomorrow and discuss discontinuing some of his BP meds. Interventions - Exercise/Activities/Manual Therapy Exercises/Activities: 48 mins. Patient continues with stationary bike full revolutions for/retro x 8 mins repositioning and adjusting seat to have more flexed position to the R knee. He receives patellar mobs, stretching for HS, knee flexion/ext, and heel cords. SAQ increased to 5#, blue tband for DF, hip abd in hooklying and ham curls with blue tband, SLR 2 1/2#, hip abd/add with SLR using blue tband, ball squeeze for hip add, 2x10. Stretching for knee extension over bolster multiple reps. Heel slides with 4#. Continued more hamstring stretching. LAQ 4#, hip flexion, 4#. Continued with leg press @ 45 # 2x15 reps, then 60# and 75# bilateral extension 3x15. Treadmill @ 1.9 mph x 7 mins. Level 1 incline. Manual Therapy: NA HOME EXERCISE PROGRAM: AP's, SLR's, SAQ's, heel slides, standing HS curls. - Charges Timed Code Treatment Minutes: 48 Total Treatment Time: 48 Procedures billed for this date of service:: ex3 Assessment: Patient demo -1 to 124 degrees flexion for the R knee. He has advanced with all therex including standing at the railing and mini squatting, deep step ups/down on balance sap trainer. He has plans to resume [employer] consistently with his friend once he has been discharged here. Patient Education: Education of diagnosis, Home Exercise Program, Education of Plan of Care Patient demonstrates compliance with HEP?: Yes Short Term Goals Goal #1: Left knee to actively demonstrate full extension. Goal to be met by: 01/22/18 Progress towards Goal:: Progressing Goal #2: Left knee flexion to 120 degrees. Goal to be met by: 01/22/18 Progress towards Goal:: Met (122 degrees today) Goal #3: Left quad strength 4+/5. Goal to be met by: 01/22/18 Progress towards Goal:: Met Goal #4: Patient to ambulate with cane in department with good safety. Goal to be met by: 01/22/18 Progress towards Goal:: Met (patient amb independently in dept at this point) Skilled Nursing Goals Goal #1: Pt knows HEP and to continue ex's to maintain functional level at D/C. Goal to be met by: 02/22/18 Progress towards goal: Met Goal #2: Score on LE functional scale improved to 39% or less impairment. Goal to be met by: 02/22/18 Progress towards goal: Progressing Comments: Reassess Saturday, anticipate he will meet it since he is currently at 40% Goal #3: Pt to amb. without assistive device, community distances with min. gt dev. Goal to be met by: 02/22/18 Progress towards goal: Met Goal #4: Left knee AROM WFL's to perform all functional activities/ADL's. Goal to be met by: 02/22/18 Progress towards goal: Met Plan PLAN OF CARE EXPIRES ON:: 02/22/18 ORDER # VISITS AND/OR THROUGH DATE: 02/22/18 PLAN: Patient attend Saturday and will discharge at that point.
== END 2018-02-13 23:59 ==
PROVIDERS: ATTEND Orthopaedic Surgery
DX: M25.561 Pain in right knee (principal); M25.661 Stiffness of right knee, not elsewhere classified; Z47.1 Aftercare following joint replacement surgery; M17.11 Unilateral primary osteoarthritis, right knee

== ENCOUNTER 2018-02-14 10:02 | Outpatient (RCR) ==
[2016-01-28 11:04] VITALS: BMI 38.0
--- NOTE | 2018-02-14 11:11 | RS.OPPTDN ---
Subjective Date of Note: 02/14/18 Visit #: 15 Date of Evaluation: 01/08/18 Payer Source: MEDICARE Treatment Diagnosis: Right knee joint limitation, pain, s/p right TKA Current Subjective/complaints:: Patient pleased with his progress,reports he definitely is walking better,along with less knee pain. Pain Assessment - Pain Description Pain Location: R knee Pain Description: Dull Pain Description: soreness Current Pain Intensity: 0 at rest Interventions - Exercise/Activities/Manual Therapy Exercises/Activities: 50 mins. Patient continues with stationary bike full revolutions for/retro x 10 mins .Leg press @ 60,57,90,2/15 reps.Supine R hamstrng stretches,passive knee extension on bolster.Heelslide to 128 - 129 actively,extensionis WNL. Total minutes of Exercise: 50 Manual Therapy: NA Total minutes of Manual Therapy: 0 HOME EXERCISE PROGRAM: AP's, SLR's, SAQ's, heel slides, standing HS curls. - Charges Timed Code Treatment Minutes: 40 Total Treatment Time: 50 Procedures billed for this date of service:: ex 3 Assessment: All rehab goals met ,steady gait without assistive device.He has good understanding of HEP,is aware of D/C plan today. Patient Education: Education of Plan of Care Patient demonstrates compliance with HEP?: Yes Short Term Goals Goal #1: Left knee to actively demonstrate full extension. Goal to be met by: 01/22/18 Progress towards Goal:: Met Goal #2: Left knee flexion to 120 degrees. Goal to be met by: 01/22/18 Progress towards Goal:: Met (122 degrees today) Goal #3: Left quad strength 4+/5. Goal to be met by: 01/22/18 Progress towards Goal:: Met Goal #4: Patient to ambulate with cane in department with good safety. 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 Goal to be met by: 02/22/18 Progress towards goal: Met Goal #2: Score on LE functional scale improved to 39% or less impairment. Goal to be met by: 02/22/18 Progress towards goal: Met Goal #3: Pt to amb. without assistive device, community distances with min. gt dev. Goal to be met by: 02/22/18 Progress towards goal: Met Goal #4: Left knee AROM WFL's to perform all functional activities/ADL's. Goal to be met by: 02/22/18 Progress towards goal: Met Plan PLAN OF CARE EXPIRES ON:: 02/22/18 ORDER # VISITS AND/OR THROUGH DATE: 02/22/18 PLAN: D/C due to goals met.
--- NOTE | 2018-02-28 13:15 | RS.OPPTDC ---
Date of Discharge: 02/14/18 Date of Evaluation: 01/08/18 Number of Visits: 15 Treatment Diagnosis: Right knee joint limitation, pain, s/p right TKA Current Complaints/Gains: Mr. Barahona states he is pleased with his progress. He plans to return to [employer] for a regular exercise program. Functional Outcome Measure LE Functional Scale: 68 (68/80=15% impairment) - G Codes & Severity Modifier G Codes & Modifier: Mob goal CJ. Mob D/C CI Source of G Code score: LE functional scale Gait - Gait Pattern Gait Comments: Pt ambulates without an assistive device. Demonstrates minimal gait deviaton. Interventions - Exercise/Activities/Manual Therapy Exercises/Activities: NA Manual Therapy: NA HOME EXERCISE PROGRAM: AP's, SLR's, SAQ's, heel slides, standing HS curls. - Objective Findings Observations,measurements,etc.: right knee AROM 129 to full extension. Quad strength 4+ to 5-/5. - Charges Timed Code Treatment Minutes: NA Total Treatment Time: NA Procedures billed for this date of service:: NA Assessment Assessment: Mr. Barahona has made great progress with therapy. He has met all his goals and demonstrates no further need for therapy. Short Term Goals Goal #1: Left knee to actively demonstrate full extension. Goal to be met by: 01/22/18 Progress towards Goal:: Met Goal #2: Left knee flexion to 120 degrees. Goal to be met by: 01/22/18 Progress towards Goal:: Met (122 degrees today) Goal #3: Left quad strength 4+/5. Goal to be met by: 01/22/18 Progress towards Goal:: Met Goal #4: Patient to ambulate with cane in department with good safety. 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 Goal to be met by: 02/22/18 Progress towards goal: Met Goal #2: Score on LE functional scale improved to 39% or less impairment. Goal to be met by: 02/22/18 Progress towards goal: Met Goal #3: Pt to amb. without assistive device, community distances with min. gt dev. Goal to be met by: 02/22/18 Progress towards goal: Met Goal #4: Left knee AROM WFL's to perform all functional activities/ADL's. Goal to be met by: 02/22/18 Progress towards goal: Met Plan Reason for Discharge:: No Further Skilled Therapy Indicated
== END 2018-03-15 23:59 ==
PROVIDERS: ATTEND Orthopaedic Surgery
DX: Z47.1 Aftercare following joint replacement surgery (principal); Z96.651 Presence of right artificial knee joint; M17.11 Unilateral primary osteoarthritis, right knee; M25.561 Pain in right knee; M25.661 Stiffness of right knee, not elsewhere classified

== ENCOUNTER 2019-03-22 23:35 | Emergency (ER) ==
[2019-03-22 23:48] VITALS: BP 170/49; TEMP 99.5; BMI 37.3
[2019-03-22] MEDS ORDERED: TENIVAC IM ONE (23:55)
--- NOTE | 2019-03-22 23:58 | ED.PDOC ---
General ED Provider: Dr. KLAUS JUNE-ER Chief Complaint: Toe Laceration Stated Complaint: i cut my toe last night--i have neuropathy and i didnt feel it Time Seen by Physician: 23:40 Mode of Arrival: Walk-In Information Source: Patient Exam Limitations: No limitations Primary Care Provider: KLAUS JUNE Nursing and Triage Documentation Reviewed and Agree: Yes Does patient meet sepsis criteria?: No System Inflammatory Response Syndrome: Not Applicable Sepsis Protocol: For patient's 13 years and over: Temp is 96.8 and below OR 101 and greater Pulse >90 BPM Resp >20/minute Acutely Altered Mental Status Are patient's symptoms suggestive of a new infection, such as: -Pneumonia -Skin, Soft Tissue -Endocarditis -UTI -Bone, Joint Infection -Implantable Device -Acute Abdominal Infection -Wound Infection -Meningitis -Blood Stream Catheter Infection -Unknown Skin Complaint Exam - Laceration/Lower Ext. Complaint/Exam Location of Injury: Left, Toe #1 Mechanism of Injury: Laceration Onset/Duration: 24 hrs Symptoms Are: Still present Initial Severity: Mild Current Severity: Mild Aggravating: Movement Alleviating: Compression Associated Signs and Symptoms: Reports: Numbness, Tingling Related History: Reports: Anticoagulant use Differential Diagnoses: Laceration Review of Systems - Review Of Systems Constitutional: Reports: No symptoms Eyes: Reports: No symptoms Ears, Nose, Mouth, Throat: Reports: No symptoms Respiratory: Reports: No symptoms Cardiac: Reports: No symptoms GI: Reports: No symptoms : Reports: No symptoms Musculoskeletal: Reports: No symptoms Skin: Reports: No symptoms Neurological: Reports: No symptoms Endocrine: Reports: No symptoms Hematologic/Lymphatic: Reports: No symptoms All Other Systems: Reviewed and Negative Past Medical History - Past Medical History Previously Healthy: Yes Endocrine: Reports: DM 2 Cardiovascular: Reports: Hypertension Respiratory: Reports: None Hematological: Reports: None Gastrointestinal: Reports: None Genitourinary: Reports: CKD Neuro/Psych: Reports: None Musculoskeletal: Reports: None Cancer: Reports: None - Surgical History General Surgical History: Reports: Unknown - Family History Family History: Reports: Unknown - Social History Smoking Status: Former smoker Hx Substance Use: No Alcohol Screening: Occasionally - Immunizations Tetanus Shot up to Date: No (unsure) Physical Exam - Physical Exam Appearance: Well-appearing, No pain distress, Well-nourished Eyes: AFSHAN, EOMI, Conjunctiva clear ENT: Ears normal, Nose normal, Oropharynx normal Neck: Supple Respiratory: Airway patent, Breath sounds clear, Breath sounds equal, Respirations nonlabored Cardiovascular: RRR, Pulses normal, No rub, No murmur GI/: Soft, Nontender, No masses, Bowel sounds normal, No Organomegaly Musculoskeletal: Normal strength, ROM intact, No edema, No calf tenderness Skin: Warm Neurological: Sensation intact, Motor intact, Reflexes intact, Cranial nerves intact, Alert, Oriented Psychiatric: Affect appropriate Critical Care Note - Critical Care Note Total Time (mins): 0 Course - Course Orders, Labs, Meds: Orders Category Date Time Status Wound care [ED WOUND CARE] .ONCE EMERGENCY 03/22/19 23:55 Ordered Tetanus and Diphtheria Tox/Pf [Tenivac] MEDS 03/22/19 23:55 Once 0.5 ml IM .ONCE ONE Vital Signs: Temp Pulse Resp BP Pulse Ox 03/22/19 23:35 99.5 F 69 20 170/49 H 97 Departure - Departure Time of Disposition: 23:57 Disposition: HOME SELF-CARE Discharge Problem: Wound, open, toe Qualifiers: Encounter type: initial encounter Qualified Code(s): S91.109A - Unspecified open wound of unspecified toe(s) without damage to nail, initial encounter Instructions: Acute Wound Care (ED) Condition: Good Pt referred to PMD for follow-up: Yes IPMP verified?: No Additional Instructions: keep clean and dry---call me if any signs of infection--wash twice daily with soap and water Allergies/Adverse Reactions: Allergies metformin Allergy (Unverified 09/06/15 14:44) strawberry Adverse Reaction (Verified 03/22/19 23:49) causes shakiness Sulfa (Sulfonamide Antibiotics) Adverse Reaction (Verified 03/22/19 23:49) Rash Home Medications: Ambulatory Orders Clonidine HCl [Catapres] 0.2 mg PO BID 05/27/15 Duloxetine HCl [Cymbalta] 20 mg PO DAILY 05/27/15 Gabapentin 800 mg PO TID 05/27/15 Hydralazine HCl 25 mg PO TID 05/27/15 Insulin Admin. Supplies [Novopen Echo] 5 unit SQ TIDWM 05/27/15 Insulin Glargine,Hum.rec.anlog [Lantus Solostar] 60 units SQ DAILY 05/27/15 Losartan Potassium 100 mg PO DAILY 05/27/15 Metformin HCl [Glucophage] 1,000 mg PO BIDAC 05/27/15 Terbinafine HCl [Lamisil] 250 mg PO DAILY 05/27/15 Disposition Discussed With: Patient
== END 2019-03-23 00:40 | disposition home or self-care (01) ==
LOC: ED 23:35
DX: S91.112A Laceration without foreign body of left great toe without damage to nail, initial encounter (principal); E11.40 Type 2 diabetes mellitus with diabetic neuropathy, unspecified; Z79.4 Long term (current) use of insulin; Z79.01 Long term (current) use of anticoagulants
CPT/HCPCS: 90471; 90714; 99282